=== PATIENT | male | born 1980 | race Caucasian/White ===

== ENCOUNTER 2024-04-24 16:01 | Emergency (ER) | payer BC ==
[~2024-04-24] VITALS: Ht 180.3 cm; Wt 112.6 kg
[2024-04-24] MEDS ORDERED: MAGNESIUM/ALUMINUM/SIMETHICONE 30 ML UDC ONE (17:35)
[2024-04-24] MEDS: LIDOCAINE VISC 2% SOLN 15 ML UDC PO ONE (17:41)
[2024-04-24] MEDS: MAALOX/LIDOCAINE/BENADRYL/NYST 30 ML BTL PO ONE (17:41)
[2024-04-24] MEDS: FAMOTIDINE 20 MG/2 ML VIAL IV STA (17:42)
[2024-04-24 18:00] VITALS: PULSE 75; RESP 16; TEMP 98; O2SAT 100
== END 2024-04-24 18:20 | disposition home or self-care (01) ==
LOC: FSED 16:15
DX: R06.02 Shortness of breath (principal); R07.89 Other chest pain; T46.6X5A Adverse effect of antihyperlipidemic and antiarteriosclerotic drugs, initial encounter; Y92.89 Other specified places as the place of occurrence of the external cause; I10 Essential (primary) hypertension; E78.5 Hyperlipidemia, unspecified
CPT/HCPCS: 71046; 80053; 81003; 84484; 93005; 99283